=== PATIENT | male | born 1985 | race Caucasian/White ===

== ENCOUNTER 2021-04-13 18:33 | Observation (INO) | payer BC ==
[~2021-04-13] VITALS: Ht 182.9 cm; Wt 88.1 kg
[2021-04-13] MEDS ORDERED: FAMOTIDINE 20 MG/2 ML VIAL IVP ONE (18:45)
[2021-04-13] MEDS ORDERED: methylPREDNISolone SOD SUCC PF 125 MG/2 ML VIAL. IV ONE (18:45)
[2021-04-13] MEDS ORDERED: IV NORMAL SALINE 1000ML BAG 1,000 ML IV ONE (18:45)
[2021-04-13] MEDS ORDERED: EPINEPHrine 1 MG/ML VIAL SQ ONE (18:45)
[2021-04-13] MEDS ORDERED: diphenhydrAMINE 50 MG/ML VIAL IVP ONE ×2 (18:45→21:45)
--- NOTE | 2021-04-13 19:12 | PHYS DOC ---
General Adult EDM: Chief Complaint: ALLERGIC REACTION HPI: HPI: Patient is a 35 year old male who presents with ate at a [place] restaurant today and began having a allergic reaction. Patient is bright red on his face and splotchy red on his arms and hands and itching. He has hives all over his body. Patient is wheezing audibly. He does speak in full clear sentences. He states he has had anaphylaxis in the past. He did not take any medicine or use a epinephrine pen. Review of Systems: Review of Systems: Constitutional: Denies fever or chills. [] Eyes: Denies change in visual acuity. [] HENT: Denies nasal congestion or sore throat. [] Respiratory: Denies cough or +shortness of breath. [] Cardiovascular: Denies chest pain or edema. [] GI: Denies abdominal pain, nausea, vomiting, bloody stools or diarrhea. [] : Denies dysuria. [] Musculoskeletal: Denies back pain or joint pain. [] Integument: Denies rash. + Hives [] Neurologic: Denies headache, focal weakness or sensory changes. [] Endocrine: Denies polyuria or polydipsia. [] Lymphatic: Denies swollen glands. [] Psychiatric: Denies depression or anxiety. [] Heart Score: C/O Chest Pain: No Risk Factors: Risk Factors: DM, Current or recent (<one month) smoker, HTN, HLP, family history of CAD, obesity. Risk Scores: Score 0 - 3: 2.5% MACE over next 6 weeks - Discharge Home Score 4 - 6: 20.3% MACE over next 6 weeks - Admit for Clinical Observation Score 7 - 10: 72.7% MACE over next 6 weeks - Early Invasive Strategies Current Medications: Current Medications Medications (Trade) Dose Ordered Sig/Maylin Start Time Stop Time Status Last Admin Dose Admin Diphenhydramine HCl (Benadryl) 50 mg 1X ONCE 04/13/21 18:45 04/13/21 19:06 DC 04/13/21 18:49 50 MG Epinephrine HCl (Adrenalin) 0.3 mg 1X ONCE 04/13/21 18:45 04/13/21 19:06 DC 04/13/21 18:50 0.3 MG Famotidine (Pepcid Vial) 20 mg 1X ONCE 04/13/21 18:45 04/13/21 19:06 DC 04/13/21 18:48 20 MG Methylprednisolone Sodium Succinate (SOLU-Medrol 125MG VIAL) 125 mg 1X ONCE 04/13/21 18:45 04/13/21 19:06 DC 04/13/21 18:49 125 MG Sodium Chloride 1,000 ml @ 1,000 mls/hr 1X ONCE 04/13/21 18:45 04/13/21 19:44 04/13/21 18:47 1,000 MLS/HR Allergies: Allergies: Allergies Coded Allergies Type Severity Reaction Last Updated Verified Unable to Assess 04/13/21 No Physical Exam: PE: Constitutional: Well developed, well nourished, no acute distress, non-toxic appearance. [] HENT: Normocephalic, atraumatic, bilateral external ears normal, oropharynx moist, no oral exudates, nose normal. [] Eyes: PERRLA, EOMI, conjunctiva normal, no discharge. [] Neck: Normal range of motion, no tenderness, supple, no stridor. [] Cardiovascular:Heart rate regular rhythm, no murmur [] Lungs & Thorax: Bilateral upper breath sounds inspiratory and expiratory wheezing in lower lungs diminished to auscultation [] Abdomen: Bowel sounds normal, soft, no tenderness, no masses, no pulsatile masses. [] Skin: Warm, dry, no erythema, no rash. Hives all over body. [] Back: No tenderness, no CVA tenderness. [] Extremities: No tenderness, no cyanosis, no clubbing, ROM intact, no edema. [] Neurologic: Alert and oriented X 3, normal motor function, normal sensory function, no focal deficits noted. [] Psychologic: Affect normal, judgement normal, mood normal. [] EKG: EK and read by Dr. Castillo is sinus rhythm and no STEMI Radiology/Procedures: Radiology/Procedures: [] Impression: [facility] [address] [place] [address] IMAGING REPORT Signed PATIENT: KENZIE BARNARD ACCOUNT: [id number] : 1985 LOCATION: ER AGE: 35 SEX: M EXAM STATUS: REG ER ORD. PHYSICIAN: ABIODUN CRUZ APRN REASON: soa ER#[id number] PROCEDURE: PORTABLE CHEST 1V EXAM: Chest, single view. HISTORY: Shortness of breath. COMPARISON: None. FINDINGS: A frontal view of the chest is obtained. There is a small left pleural effusion with lower lobe atelectasis or infiltrate. There are bilateral internal fixation plates traversing multiple ribs. The heart is normal in size. There is no pneumothorax. IMPRESSION: 1. Small left pleural effusion with left lower lobe atelectasis or infiltrate. 2. Internal fixation of multiple suspected chronic rib fractures. Electronically signed by: Rosa Negro MD (04/13/2021 8:11 PM) [facility] DICTATED and SIGNED BY: ROSA NEGRO MD DATE: 04/13/[id number] 0 Course & Med Decision Making: Course & Med Decision Making Pertinent Labs and Imaging studies reviewed. (See chart for details) See HPI. Alert and oriented x4. Ambulatory with a steady gait. Lungs are inspiratory expiratory wheezing. Patient is given epinephrine 0.3 subcu, Pepcid, Benadryl, Solu-Medrol. There is no swelling of the face. Tongue is not swollen and uvula is midline. After medication given. Patient states he is feeling much better. 2 hours after medication is given patient states he is starting to itch again. Lungs are clear to auscultate without any wheezes. Patient states he is breathing much better. Patient is told that because the epinephrine was given she will need to be admitted for observation. He agrees to this at that time. [] Kiaraon Disclaimer: Korey Disclaimer: This electronic medical record was generated, in whole or in part, using a voice recognition dictation system. Departure Departure Impression: Primary Impression: Anaphylactic reaction Qualified Codes: T78.2XXA - Anaphylactic shock, unspecified, initial encounter Disposition: ADMITTED INPATIENT Admitting Physician: AARTI Condition: STABLE ABIODUN CRUZ APRN April 13, 2021 19:12
[2021-04-13 19:21] LABS: BASO % 0 % (0-3); EOS # 0.3 x10^3/uL (0.0-0.7); EOS % 3 % (0-3); HEMATOCRIT 42.5 % (39.0-53.0); HEMOGLOBIN 13.8 g/dL (13.0-17.5); LYMPH # 3.5 x10^3/uL (1.0-4.8); LYMPH % 39 % (24-48); MEAN CORPUSCULAR HEMOGLOBIN 24 pg (25-35); MEAN CORPUSCULAR HGB CONC 33 g/dL (31-37); MEAN CORPUSCULAR VOLUME 72 fL (79-100); MONO # 0.7 x10^3/uL (0.0-1.1); MONO % 8 % (0-9); NEUT # 4.4 x10^3/uL (1.8-7.7); NEUT % 50 % (31-73); PLATELET COUNT 280 x10^3/uL (140-400); RED BLOOD COUNT 5.88 x10^6/uL (4.30-5.70); RED CELL DISTRIBUTION WIDTH 15.8 % (11.5-14.5); WHITE BLOOD COUNT 8.9 x10^3/uL (4.0-11.0)
[2021-04-13 19:34] LABS: ALBUMIN 3.3 g/dL (3.4-5.0); CREATININE 1.1 mg/dL (0.7-1.3); GFR 75.3; POTASSIUM 3.6 mmol/L (3.5-5.1); TOTAL BILIRUBIN 0.2 mg/dL (0.2-1.0); TOTAL PROTEIN 6.5 g/dL (6.4-8.2)
--- NOTE | 2021-04-13 20:14 | RAD ---
EXAM: Chest, single view. HISTORY: Shortness of breath. COMPARISON: None. FINDINGS: A frontal view of the chest is obtained. There is a small left pleural effusion with lower lobe atelectasis or infiltrate. There are bilateral internal fixation plates traversing multiple ribs . The heart is normal in size. There is no pneumothorax. IMPRESSION: 1. Small left pleural effusion with left lower lobe atelectasis or infiltrate. 2. Internal fixation of multiple suspected chronic rib fractures. Electronically signed by: Rosa Degroot MD (04/13/2021 8:11 PM) [facility]
--- NOTE | 2021-04-13 20:17 | EKG ---
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
[2021-04-13] MEDS ORDERED: MONTELUKAST SODIUM 10 MG TABLET. PO SCH (21:45)
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
[2021-04-14 00:10] VITALS: BP 119/69
[2021-04-14] MEDS ORDERED: CYCL10TA2 PO (00:38)
[2021-04-14] MEDS ORDERED: OXYC5CAP PO (00:38)
[2021-04-14] MEDS ORDERED: EPIPEN 2-P0.3 MG/0.3 IM (00:52)
[2021-04-14] MEDS ORDERED: ALBU2.5V8 IH (00:52)
[2021-04-14] MEDS ORDERED: diphenhydrAMINE HCL 25 MG CAPSULE PO PRN (01:00)
[2021-04-14 03:00] VITALS: BP 114/71
[2021-04-14 07:00] VITALS: BP 98/50
[2021-04-14] MEDS ORDERED: predniSONE 20 MG TABLET PO SCH (09:00)
[2021-04-14] MEDS ORDERED: HYDROcodone/APAP 5/325MG 1 TAB TABLET PO PRN (09:00)
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
--- NOTE | 2021-04-14 10:33 | PDOC3 ---
Discharge Summary Visit Information Date of Admission: April 13, 2021 Date of Discharge: April 14, 2021 Final Diagnosis Problems Medical Problems: (1) Anaphylactic reaction Status: Acute Brief Hospital Course Allergies Allergies Coded Allergies Type Severity Reaction Last Updated Verified Milk Containing Products Allergy Severe anaphylaxis 04/14/21 Yes Vital Signs Vital Signs Date Time Temp Pulse Resp B/P (MAP) Pulse Ox O2 Delivery O2 Flow Rate FiO2 04/14/21 10:16 95 Room Air 04/14/21 07:00 97.8 96 20 98/50 (66) 97.8 Lab Results Laboratory Tests Test 04/13/21 19:04 White Blood Count 8.9 x10^3/uL (4.0-11.0) Red Blood Count 5.88 x10^6/uL (4.30-5.70) Hemoglobin 13.8 g/dL (13.0-17.5) Hematocrit 42.5 % (39.0-53.0) Mean Corpuscular Volume 72 fL (79-100) Mean Corpuscular Hemoglobin 24 pg (25-35) Mean Corpuscular Hemoglobin Concent 33 g/dL (31-37) Red Cell Distribution Width 15.8 % (11.5-14.5) Platelet Count 280 x10^3/uL (140-400) Neutrophils (%) (Auto) 50 % (31-73) Lymphocytes (%) (Auto) 39 % (24-48) Monocytes (%) (Auto) 8 % (0-9) Eosinophils (%) (Auto) 3 % (0-3) Basophils (%) (Auto) 0 % (0-3) Neutrophils # (Auto) 4.4 x10^3/uL (1.8-7.7) Lymphocytes # (Auto) 3.5 x10^3/uL (1.0-4.8) Monocytes # (Auto) 0.7 x10^3/uL (0.0-1.1) Eosinophils # (Auto) 0.3 x10^3/uL (0.0-0.7) Basophils # (Auto) 0.0 x10^3/uL (0.0-0.2) Sodium Level 143 mmol/L (136-145) Potassium Level 3.6 mmol/L (3.5-5.1) Chloride Level 107 mmol/L (98-107) Carbon Dioxide Level 26 mmol/L (21-32) Anion Gap 10 (6-14) Blood Urea Nitrogen 13 mg/dL (8-26) Creatinine 1.1 mg/dL (0.7-1.3) Estimated GFR (Cockcroft-Gault) 75.3 BUN/Creatinine Ratio 12 (6-20) Glucose Level 120 mg/dL (70-99) Calcium Level 8.0 mg/dL (8.5-10.1) Total Bilirubin 0.2 mg/dL (0.2-1.0) Aspartate Amino Transf (AST/SGOT) 17 U/L (15-37) Alanine Aminotransferase (ALT/SGPT) 26 U/L (16-63) Alkaline Phosphatase 95 U/L (46-116) Total Protein 6.5 g/dL (6.4-8.2) Albumin 3.3 g/dL (3.4-5.0) Albumin/Globulin Ratio 1.0 (1.0-1.7) Laboratory Tests Test 04/13/21 19:04 White Blood Count 8.9 x10^3/uL (4.0-11.0) Red Blood Count 5.88 x10^6/uL (4.30-5.70) Hemoglobin 13.8 g/dL (13.0-17.5) Hematocrit 42.5 % (39.0-53.0) Mean Corpuscular Volume 72 fL (79-100) Mean Corpuscular Hemoglobin 24 pg (25-35) Mean Corpuscular Hemoglobin Concent 33 g/dL (31-37) Red Cell Distribution Width 15.8 % (11.5-14.5) Platelet Count 280 x10^3/uL (140-400) Neutrophils (%) (Auto) 50 % (31-73) Lymphocytes (%) (Auto) 39 % (24-48) Monocytes (%) (Auto) 8 % (0-9) Eosinophils (%) (Auto) 3 % (0-3) Basophils (%) (Auto) 0 % (0-3) Neutrophils # (Auto) 4.4 x10^3/uL (1.8-7.7) Lymphocytes # (Auto) 3.5 x10^3/uL (1.0-4.8) Monocytes # (Auto) 0.7 x10^3/uL (0.0-1.1) Eosinophils # (Auto) 0.3 x10^3/uL (0.0-0.7) Basophils # (Auto) 0.0 x10^3/uL (0.0-0.2) Sodium Level 143 mmol/L (136-145) Potassium Level 3.6 mmol/L (3.5-5.1) Chloride Level 107 mmol/L (98-107) Carbon Dioxide Level 26 mmol/L (21-32) Anion Gap 10 (6-14) Blood Urea Nitrogen 13 mg/dL (8-26) Creatinine 1.1 mg/dL (0.7-1.3) Estimated GFR (Cockcroft-Gault) 75.3 BUN/Creatinine Ratio 12 (6-20) Glucose Level 120 mg/dL (70-99) Calcium Level 8.0 mg/dL (8.5-10.1) Total Bilirubin 0.2 mg/dL (0.2-1.0) Aspartate Amino Transf (AST/SGOT) 17 U/L (15-37) Alanine Aminotransferase (ALT/SGPT) 26 U/L (16-63) Alkaline Phosphatase 95 U/L (46-116) Total Protein 6.5 g/dL (6.4-8.2) Albumin 3.3 g/dL (3.4-5.0) Albumin/Globulin Ratio 1.0 (1.0-1.7) Brief Hospital Course Mr. Lyons is a 35 old male who presented with anaphylactic reaction. He was treated with steroids, epinephrine, and Benadryl with improvement. Admitted overnight for observation. No further anaphylactic symptoms upon my evaluation the next day. Prescription for EpiPen with refills was provided on discharge. Discharge Information Condition at Discharge: Improved Disposition/Orders: D/C to Home Scheduled Epinephrine (Epipen 2-Callum) 0.3 Mg/0.3 Ml Auto.injct, 1 SYR IM ONCE for Anaphylaxis for 1 Days, #1 Ref 2 Prescribed by: ARCHANA CURIEL MD on 04/14/21 0052 Scheduled PRN Albuterol Sulfate (Proair Hfa Inhaler) 8.5 Gm Hfa.aer.ad, 2 PUFF IH PRN Q4-6HRS PRN for wheezing for 21 Days, #1 Ref 0 Prescribed by: ARCHANA CURIEL MD on 04/14/2151 Discontinued Medications Cyclobenzaprine Hcl (Cyclobenzaprine Hcl) 10 Mg Tablet, 10 MG PO TID for pain, (Reported) Entered as Reported by: ELAINE MILLARD on 04/14/2137 Last Action: New Order on 04/14/2137 by ELAINE MILLARD Oxycodone Hcl (Oxycodone Hcl) 5 Mg Capsule, 5 MG PO PRN Q6HRS PRN for PAIN, Ref 0 (Reported) Entered as Reported by: ELAINE MILLARD on 04/14/2137 Last Action: New Order on 04/14/2137 by ELAINE MILLARD Justicifation of Admission Dx: Justifications for Admission: Justification of Admission Dx: Yes ROBBY ROSE MD April 14, 2021 10:33
--- NOTE | 2021-04-14 10:46 | NUR ---
Discharge Note: SAM BARNARD BRENHAM Discharge instructions and discharge home medications reviewed with Patient and a copy given. All questions have been answered and understanding verbalized. The following instructions and handouts were given: Anaphylaxis, epi injection. Patient discharged to home with self via personal vehicle and self care. IV out, monitor off and placed at nurses station.
[2021-04-14 11:00] VITALS: BP 117/70
--- NOTE | 2021-04-14 11:03 | NUR ---
Discharge went over with patient. Upon discharge patient did take hospital copy of discharge instructions with him in packet.
== END 2021-04-14 10:45 | disposition home or self-care (01) ==
LOC: ER 18:33 → 2 NORTH 04-14 00:17
PROVIDERS: ADMIT Internal Medicine; ATTEND Internal Medicine
DX: T78.2XXA Anaphylactic shock, unspecified, initial encounter (principal); J45.909 Unspecified asthma, uncomplicated; J90 Pleural effusion, not elsewhere classified; J98.11 Atelectasis; Z91.011 Allergy to milk products
CPT/HCPCS: 36415; 71045; 80053; 85025; 93005; 96361; 96372; 96374; 96375; 96376; 99285; G0378; J0171; J1200; J2930; J3490; J7030; J7512; G0379